=== PATIENT | male | born 1975 | race Asian ===

== ENCOUNTER 2024-09-03 09:16 | Outpatient (CLI) | payer OTHER ==
[2024-09-03 09:54] LABS: #Basophils 0.03 10x3/uL (0.0-0.2); #Eosinophils 0.22 10x3/uL (0.0-0.5); #Monocytes 0.59 10x3/uL (0.0-1.1); #Neutrophils 3.79 10x3/uL (1.5-8.4); %Basophils 0.4 % (0.0-2.0); %Eosinophils 3.2 % (0.0-6.0); %Lymphocytes 33.3 % (18.0-47.0); %Monocytes 8.5 % (0.0-10.0); %Neutrophils 54.3 % (40.0-75.0); Hematocrit 45.3 % (38.8-50.0); Hemoglobin 15.2 g/dL (13.5-17.5); Mean Corpuscular HGB CONC 33.6 g/dL (32.0-36.0); Mean Corpuscular Hemoglobin 29.1 pg (27.0-33.0); Mean Corpuscular Volume 86.6 fL (81.2-95.1); Mean Platelet Volume 9.4 fL (7.4-10.4); Platelet Count 176 10x3/uL (150-450); RBC Distribution Width 12.6 % (11.5-14.5); Red Blood Cell (RBC) Count 5.23 10x6/uL (4.32-5.72); White Blood Cell (WBC) Count 6.97 10x3/uL (3.5-10.5)
[2024-09-03 12:21] LABS: Anion Gap 10 mmol/L (10-20); BUN (Urea Nitrogen) 14 mg/dL (8.9-20.6); Calc. Creatinine Clearance 0 mL/min (70-130); Calcium 9.2 mg/dL (7.8-10.44); Carbon Dioxide 25 mmol/L (22-29); Chloride 108 mmol/L (98-107); Estimated GFR 108; Glucose 92 mg/dL (70-105); Potassium 4.2 mmol/L (3.5-5.1); Sodium 139 mmol/L (136-145)
== END 2024-09-03 09:17 | disposition home or self-care (01) ==
LOC: CSHLAB 09:16
PROVIDERS: ATTEND Surgery
DX: Z01.812 Encounter for preprocedural laboratory examination (principal); K40.90 Unilateral inguinal hernia, without obstruction or gangrene, not specified as recurrent
CPT/HCPCS: 80048; 85025

== ENCOUNTER 2024-09-08 11:08 | Day surgery (SDC) | payer OTHER ==
[2024-09-03 09:38] VITALS: BMI 21.5
[2024-09-08] MEDS ORDERED: CEFAZOLIN 2 GM VIAL ONE (11:26)
[2024-09-08] MEDS ORDERED: Bupivacaine/Epinephrine 0.25% 30 ML VIAL ONE (11:26)
[2024-09-08] MEDS ORDERED: PROPOFOL 20 ML ONE (12:10)
[2024-09-08] MEDS ORDERED: fentaNYL 50 mcg/mL 1 mL Vial ONE ×4 (12:10→14:22)
[2024-09-08] MEDS ORDERED: Lidocaine 1% PF 5 ML VIAL ONE (12:11)
[2024-09-08] MEDS ORDERED: Ondansetron PF 4 MG/2 ML Vial ONE (12:27)
[2024-09-08] MEDS ORDERED: Dexamethasone 4 mg/ml Vial ONE (12:27)
[2024-09-08] MEDS ORDERED: ePHEDrine Sulfate 50 MG/10 ML VIAL ONE (12:32)
[2024-09-08] MEDS ORDERED: Rocuronium Bromide 10 MG/ML (10ML VIAL) ONE (12:53)
[2024-09-08] MEDS ORDERED: SUGAMMADEX SODIUM 200 MG/2 ML VIAL ONE (13:32)
[2024-09-08] MEDS ORDERED: HYDROcodone/Acetaminophen 5/325 mg Tablet ONE (14:55)
== END 2024-09-08 15:25 | disposition home or self-care (01) ==
LOC: CSHSDC 11:08
PROVIDERS: ATTEND Surgery
PROC: 0YUA4JZ Supplement Bilateral Inguinal Region with Synthetic Substitute, Percutaneous Endoscopic Approach (ICD-10-PCS; principal; 2024-09-08)
DX: K40.20 Bilateral inguinal hernia, without obstruction or gangrene, not specified as recurrent (principal); Z79.899 Other long term (current) drug therapy
CPT/HCPCS: C1781; C1889; J1100; J2405; J2704; J3010; S2900